=== PATIENT | female | born 1965 | race African-American/Black ===

== ENCOUNTER 2019-05-02 12:37 | Day surgery (SDC) | payer OTHER ==
[2019-04-24 16:50] VITALS: BMI 44.3
[2019-05-02 13:08] VITALS: TEMP 98.1
[2019-05-02 15:45] VITALS: BP 142/77; PULSE 82
--- NOTE | 2019-05-04 18:29 | PATH ---
Surgical Pathology Report Patient Name: MEMO AZEVEDO [facility]. Rec. #: [id number] /Age/Gender: 1965 (Age: 54) / F Account: [id number] Location: [facility] Taken: 05/02/2019 Received: 05/02/2019 Reported: 05/04/2019 Physicians: Claudia Trujillo M.D. Specimen(s) Received A: SECOND PORTION DUODENUM B: ANTRUM C: BX GE JUNCTION Clinical History Ulcers Postoperative diagnosis: Gastritis Final Diagnosis A. SECOND PORTION DUODENUM, BIOPSY: DUODENUM MUCOSA WITH NO SIGNIFICANT PATHOLOGIC CHANGE. NO HISTOLOGIC EVIDENCE OF CELIAC DISEASE. B. ANTRUM, BIOPSY: GASTRIC MUCOSA WITH CHRONIC GASTRITIS. IMMUNOSTAIN FOR H. PYLORI IS NEGATIVE. NEGATIVE FOR INTESTINAL METAPLASIA. C. GE JUNCTION, BIOPSY: COLUMNAR / SQUAMOUS JUNCTIONAL MUCOSA WITH CHRONIC INFLAMMATION. NEGATIVE FOR INTESTINAL METAPLASIA. Electronically Signed Beltran Vásquez M.D. Gross Description A. Received in formalin, labeled "second portion of duodenum" is a hays, irregular portion of soft tissue measuring 0.7 cm. in greatest dimension. The specimen is submitted in toto in one cassette. B. Received in formalin, labeled "antrum" is a hays, irregular portion of soft tissue measuring 0.4 cm. in greatest dimension. The specimen is submitted in toto in one cassette. C. Received in formalin, labeled "GE junction" are 2 hays, irregular portions of soft tissue averaging 0.3 cm. in greatest dimension. The specimens are submitted in toto in one cassette. 05/03/2019 saudi05/03/2019
== END 2019-05-02 15:49 | disposition home or self-care (01) ==
LOC: FASU-ENDO 12:37
PROVIDERS: ATTEND Internal Medicine Gastroenterology
PROC: 0DB68ZX Excision of Stomach, Via Natural or Artificial Opening Endoscopic, Diagnostic (ICD-10-PCS; 2019-05-02)
PROC: 0DB48ZX Excision of Esophagogastric Junction, Via Natural or Artificial Opening Endoscopic, Diagnostic (ICD-10-PCS; 2019-05-02)
PROC: 0DB98ZX Excision of Duodenum, Via Natural or Artificial Opening Endoscopic, Diagnostic (ICD-10-PCS; principal; 2019-05-02 14:40)
DX: K29.50 Unspecified chronic gastritis without bleeding (principal); K31.89 Other diseases of stomach and duodenum
CPT/HCPCS: 88305-TC; 88342-TC

== ENCOUNTER 2020-07-08 07:20 | Day surgery (SDC) | payer OTHER ==
[2020-07-03 11:52] VITALS: BMI 44.9
[2020-07-08] MEDS ORDERED: LIDOCAINE HCL/PF 2% SDV 5ML VIAL ONE (07:37)
[2020-07-08] MEDS ORDERED: PROPOFOL 20 ML ONE ×3 (07:37)
[2020-07-08 07:50] VITALS: TEMP 98.6
[2020-07-08 09:52] VITALS: BP 133/85; PULSE 66
== END 2020-07-08 10:10 | disposition home or self-care (01) ==
LOC: FASU-ENDO 07:20
PROVIDERS: ATTEND Internal Medicine Gastroenterology
PROC: 0DB78ZX Excision of Stomach, Pylorus, Via Natural or Artificial Opening Endoscopic, Diagnostic (ICD-10-PCS; 2020-07-08)
PROC: 0DB48ZX Excision of Esophagogastric Junction, Via Natural or Artificial Opening Endoscopic, Diagnostic (ICD-10-PCS; 2020-07-08)
PROC: 0DB98ZX Excision of Duodenum, Via Natural or Artificial Opening Endoscopic, Diagnostic (ICD-10-PCS; principal; 2020-07-08 09:06)
DX: K29.70 Gastritis, unspecified, without bleeding (principal); K31.89 Other diseases of stomach and duodenum
CPT/HCPCS: 88305-TC; 88342-TC

== ENCOUNTER 2021-12-04 09:00 | Day surgery (SDC) | payer BC ==
[2021-11-26 15:51] VITALS: BMI 46.3
[2021-12-04] MEDS ORDERED: PROPOFOL 20 ML ONE ×4 (09:30)
[2021-12-04] MEDS ORDERED: LIDOCAINE HCL/PF 2% SDV 5ML VIAL ONE (09:30)
[2021-12-04 09:31] VITALS: TEMP 97.1
[2021-12-04 11:25] VITALS: BP 140/98; PULSE 75
== END 2021-12-04 11:40 | disposition home or self-care (01) ==
LOC: FASU-ENDO 09:00
PROVIDERS: ATTEND Internal Medicine Gastroenterology
PROC: 0DB68ZX Excision of Stomach, Via Natural or Artificial Opening Endoscopic, Diagnostic (ICD-10-PCS; 2021-12-04)
PROC: 0DB48ZX Excision of Esophagogastric Junction, Via Natural or Artificial Opening Endoscopic, Diagnostic (ICD-10-PCS; 2021-12-04)
PROC: 0DB98ZX Excision of Duodenum, Via Natural or Artificial Opening Endoscopic, Diagnostic (ICD-10-PCS; principal; 2021-12-04 10:28)
DX: K29.50 Unspecified chronic gastritis without bleeding (principal); K20.90 Esophagitis, unspecified without bleeding; K31.89 Other diseases of stomach and duodenum; R10.13 Epigastric pain
CPT/HCPCS: 88305-TC; 88342-TC